=== PATIENT | male | born 1970 | race African-American/Black ===

== ENCOUNTER 2016-09-16 21:17 | Emergency (ER) | payer OTHER ==
[~2016-09-16] VITALS: Ht 185.4 cm; Wt 74.8 kg
[2016-09-16 21:42] LABS: ABSOLUTE BASOPHIL COUNT 0 /CUMM (0.0-0.2); ABSOLUTE EOSINOPHIL COUNT 0.3 /CUMM (0.0-0.7); ABSOLUTE GRANULOCYTE CT 4.3 /CUMM (1.4-6.5); ABSOLUTE LYMPH COUNT 2.6 /CUMM (1.2-3.4); ABSOLUTE MONOCYTE COUNT 0.8 /CUMM (0.10-0.60); BASOPHIL % 0.4 % (0.0-2.0); GRANULOCYTE % 53.4 % (42.2-75.2); HEMATOCRIT 44.4 % (42-52); MEAN CORPUSCULAR HGB 30.9 PG (27.0-31.0); MEAN CORPUSCULAR HGB CONC 33.2 G/DL (33.0-37.0); MEAN PLATELET VOLUME 7.9 FL (7.4-10.4); PLATELET COUNT 204 /CUMM (130-400); RED BLOOD CELL CT 4.77 /CUMM (4.70-6.10)
--- NOTE | 2016-09-16 21:58 | ED CARDIAC/CP/PALPITATIONS ---
History of Present Illness General Chief Complaint: Chest Pain Stated Complaint: PT IS HAVING CHEST PAIN Source: patient Exam Limitations: no limitations Vital Signs & Intake/Output Vital Signs & Intake/Output Vital Signs Date Time Temp Pulse Resp B/P B/P Pulse O2 O2 Flow FiO2 Mean Ox Delivery Rate 09/17 0143 98.5 77 18 133/87 99 Room Air 09/17 2207 98.9 76 15 133/94 100 Room Air 09/166 100 Room Air 09/168 98.6 70 16 139/85 94 Room Air ED Intake and Output 09/17 0000 09/16 1200 Intake Total 0 Output Total Balance 0 Intake, Oral 0 Patient 165 lb Weight Weight Reported by Patient Measurement Method Allergies Coded Allergies: hydrocodone (From VICODIN) ([facility] 09/16/16) oxycodone (From PERCOCET) ([facility] 09/16/16) Reconcile Medications Multivitamin (Multi-Day Vitamins) 1 EACH TABLET 1 TAB PO DAILY SUPPLEMENT ( Reported) Triage Note: PT TO ED C/P MID STERNAL CP THAT STARTED AT 1300 TODAY. WORSE WITH MOVEMENT AND HEAVY LIFTING. DENIES NAUSEA, DNEIES SOB. PAIN IS 7/10. NON RADIATING. TAKEN TO [facility] FOR EKG. EVAL BY MD IN [facility]. PT STATES TO MD THAT PAIN HAS BEEN GONIG ON FOR MONTHS "BUT GOT SHARP AT 1300 TODAY." BLOODWORK DRAWN IN TRIAGE. Triage Nurses Notes Reviewed? yes Onset: "I've had this pain for months." Duration: waxing and waning, months Timing: recent history Quality/Severity: mild, moderate Location: central Radiation: no radiation Activities at Onset: none Prior Chest Pain/Card Workup: no prior chest pain Associated Symptoms: "It hurts when I take a deep breath." HPI: 46 yo gentleman presents with intermittent chest discomfort for the past several months. He notes that tonight he felt the discomfort, which he describes as being central in his chest, "like a little jolt," that lasts a few minutes, and then self- resolves. He gets this sensation often, which is exacerbated with deep inspiration, 7/10. He states he is chest pain free upon arrival to the ED. Past History Travel History Traveled to [place] past 21 day No Medical History Any Pertinent Medical History? see below for history Neurological: NONE EENT: NONE Cardiovascular: NONE Respiratory: NONE Gastrointestinal: NONE Hepatic: NONE Renal: NONE Musculoskeletal: NONE Psychiatric: NONE Endocrine: NONE Surgical History Surgical History: non-contributory Psychosocial History What is your primary language Malay Tobacco Use: Refused to answer Family History Hx Contributory? No Review of Systems Review of Systems Constitutional: Reports: no symptoms. EENTM: Reports: no symptoms. Respiratory: Reports: no symptoms. Cardiovascular: Reports: no symptoms. GI: Reports: no symptoms. Genitourinary: Reports: no symptoms. Musculoskeletal: Reports: no symptoms. Skin: Reports: no symptoms. Neurological/Psychological: Reports: no symptoms. Hematologic/Endocrine: Reports: no symptoms. Immunologic/Allergic: Reports: no symptoms. All Other Systems: Reviewed and Negative Physical Exam Physical Exam General Appearance: well developed/nourished, no apparent distress Head: atraumatic, normal appearance Eyes: Bilateral: normal appearance. Ears, Nose, Throat: normal pharynx, normal ENT inspection Neck: normal inspection, supple, full range of motion Respiratory: tender mildly in sternum to deep palpation Cardiovascular: regular rate/rhythm Gastrointestinal: normal bowel sounds, soft, non-tender, no organomegaly Back: normal inspection, normal range of motion Extremities: normal inspection Neurologic/Psych: no motor/sensory deficits, awake, alert, oriented x 3 Skin: intact, normal color, warm/dry Core Measures ACS in differential dx? No Severe Sepsis Present: No Septic Shock Present: No Progress Differential Diagnosis: AMI, CHF/pulm edema, costochondritis, hyperventilation, mi, acs, costochondritis vs other. Plan of Care: Orders Procedure Date/time Status TROPONIN LEVEL 09/17 29 Complete EKG 09/17 29 Active D-DIMER 09/16 2122 Complete TROPONIN LEVEL 09/16 2118 Complete MAGNESIUM 09/16 2118 Complete COMPREHENSIVE METABOLIC PANEL 09/16 2118 Complete CBC WITHOUT DIFFERENTIAL 09/16 2118 Complete EKG 09/16 2118 Active Laboratory Tests 09/17/16 0025: Troponin I < 0.01 09/16/162128: Anion Gap 12, Estimated GFR > 60, BUN/Creatinine Ratio 15.8, Glucose 92, Calcium 9.2, Magnesium 2.0, Total Bilirubin 0.4, AST 30, ALT 50, Alkaline Phosphatase 64 , Troponin I < 0.01, Total Protein 7.3, Albumin 4.3, Globulin 3.0, Albumin/ Globulin Ratio 1.4, D-Dimer < 200, CBC w Diff NO MAN DIFF REQ, RBC 4.77, MCV 93.0, MCH 30.9, RDW 13.0, MPV 7.9, Gran % 53.4, Lymphocytes % 32.6, Monocytes % 9.6 H, Eosinophils % 4.0, Basophils % 0.4, Absolute Granulocytes 4.3, Absolute Lymphocytes 2.6, Absolute Monocytes 0.8 H, Absolute Eosinophils 0.3, Absolute Basophils 0, PUBS MCHC 33.2 Diagnostic Imaging: Viewed by Me: Radiology Read. Discussed w/RAD: Radiology Read. CXR Impression: no acute abnormality, no infiltrates, normal size heart, normal mediastinum Initial ED EKG: LVH... NO ACUTE CHANGES Departure Departure Disposition: HOME OR SELF CARE Condition: Stable Clinical Impression Primary Impression: Chest pain Referrals: DONI OVERTON MD (PCP/Family) Departure Forms: Customer Survey General Discharge Information Comments no episodes of chest pain in the ED. trop neg x 2, ekg benign x 2... pt safe for discharge... counseled immediate return if his symptoms recur. pt referred to poured concrete wall technician. Critical Care Note Critical Care Note Critical Care Time: non-applicable
--- NOTE | 2016-09-16 22:05 | RADIOLOGY REPORT ---
EXAMINATION: XR PORTABLE CHEST CLINICAL INFORMATION: Chest pain. COMPARISON: None TECHNIQUE: Portable AP view of the chest was obtained. 9:47 PM FINDINGS: No significant abnormality is noted involving the heart, lungs, mediastinum, bony thorax or soft tissues. IMPRESSION: Unremarkable examination.
[2016-09-16] MEDS ORDERED: MULTI-DAY VITA1 EACH PO (22:23)
[2016-09-17 01:43] VITALS: BP 133/87
== END 2016-09-17 01:44 ==
LOC: ERH 21:17
PROVIDERS: Emergency Medicine
DX: R07.89 Other chest pain (principal)
CPT/HCPCS: 93005; 93010